=== PATIENT | male | born 1975 | race Caucasian/White ===

== ENCOUNTER 2018-09-30 10:05 | Outpatient (CLI) | payer BC ==
[2018-09-30 13:51] LABS: ALBUMIN 4.4 g/dL (3.2-5.5); ALBUMIN/GLOBULIN RATIO 1.6 (1.0-2.2); ALKALINE PHOSPHATASE 71 IU/L (42-121); ALT ALANINE AMINOTRANSFERASE 92 IU/L (10-60); AST ASPARTATE AMINOTRANSFERASE 43 IU/L (10-42); BILIRUBIN,TOTAL 0.8 mg/dL (0.2-1.0); BUN - BLOOD UREA NITROGEN 17 mg/dL (6-20); CALCIUM 9.4 mg/dL (8.5-10.3); CARBON DIOXIDE - CO2 29 mmol/L (21-32); CHLORIDE 101 mmol/L (101-111); CHOL/HDL RATIO 7.4 (<5.0); CHOLESTEROL 237 mg/dL; CREATININE 0.9 mg/dL (0.6-1.2); GFR - MDRD 93 (>89); GLUCOSE 120 mg/dL (70-100); HDL CHOLESTEROL 32 mg/dL; SODIUM 138 mmol/L (135-145); TOTAL PROTEIN 7.1 g/dL (6.7-8.2)
[2018-09-30 13:58] LABS: HB2 TOTAL 15.8 g/dL; HEMOGLOBIN A1C 0.71 g/dL; HEMOGLOBIN A1C % 6.3 % (4.6-6.2)
[2018-09-30 14:10] LABS: LDL CHOLESTEROL,DIRECT 124 mg/dL; LDLD/HDL RATIO 3.9 (<3.6)
== END 2018-09-30 10:06 | disposition home or self-care (01) ==
LOC: LAB.N 10:05
PROVIDERS: ATTEND Nurse Practitioner
DX: E11.9 Type 2 diabetes mellitus without complications (principal)
CPT/HCPCS: 36415; 80053; 80061; 82043; 83036; 83721; 84443

== ENCOUNTER 2018-12-30 08:00 | Outpatient (CLI) | payer BC ==
[2018-12-30 12:55] LABS: ALBUMIN 4.4 g/dL (3.2-5.5); ALBUMIN/GLOBULIN RATIO 1.5 (1.0-2.2); BILIRUBIN,TOTAL 0.8 mg/dL (0.2-1.0); CALCIUM 9.7 mg/dL (8.5-10.3); CREATININE 0.9 mg/dL (0.6-1.2); TOTAL PROTEIN 7.3 g/dL (6.7-8.2)
== END 2018-12-30 08:01 | disposition home or self-care (01) ==
LOC: LAB.N 08:00
PROVIDERS: ATTEND Physician Assistant Medical
DX: R10.84 Generalized abdominal pain (principal)
CPT/HCPCS: 36415; 80053; 82150; 83690

== ENCOUNTER 2019-01-06 08:00 | Outpatient (CLI) | payer BC ==
[2019-01-06 19:38] LABS: HB2 TOTAL 16.2 g/dL; HEMOGLOBIN A1C 0.77 g/dL; HEMOGLOBIN A1C % 6.5 % (4.6-6.2)
== END 2019-01-06 23:59 | disposition home or self-care (01) ==
LOC: LAB.N 08:00
PROVIDERS: ATTEND Physician Assistant Medical
DX: E11.9 Type 2 diabetes mellitus without complications (principal)
CPT/HCPCS: 36415; 83036

== ENCOUNTER 2020-12-02 07:13 | Outpatient (CLI) | payer BC ==
--- NOTE | 2020-12-02 10:10 | XRAY Report ---
PROCEDURE: Cervical Spine 2 View INDICATIONS: PAIN IN THORACIC SPINE, CERVICALGIA TECHNIQUE: 4 view(s) of the cervical spine were acquired. COMPARISON: None. FINDINGS: Bones: Normal cervical spine vertebral body height and alignment. No significant disc height loss or other degenerative changes. No suspicious lytic or blastic osseous lesion. Soft tissues: No prevertebral soft tissue swelling. IMPRESSION: Unremarkable exam. No significant degenerative changes identified. MRI may be helpful fo r more sensitive evaluation. Reviewed by: Paulino Ocampo MD on 12/02/2020 10:09 AM [facility] Approved by: Paulino Ocampo MD on 12/02/2020 10:09 AM [facility] Station ID: [id number]
--- NOTE | 2020-12-02 10:11 | XRAY Report ---
PROCEDURE: Thoracic Spine 2 View INDICATIONS: PAIN IN THORACIC SPINE, CERVICALGIA TECHNIQUE: 3 views of the thoracic spine were acquired. COMPARISON: None. FINDINGS: Bones: Fracture or dislocation. Normal thoracic spine vertebral body height and alignment. No signifi cant degenerative changes. Soft tissues: No paravertebral stripe thickening. IMPRESSION: Normal thoracic spine radiographs. Reviewed by: Paulino Ocampo MD on 12/02/2020 10:09 AM [facility] Approved by: Paulino Ocampo MD on 12/02/2020 10:09 AM [facility] Station ID: [id number]
== END 2020-12-02 07:14 | disposition home or self-care (01) ==
LOC: DI.N 07:13
PROVIDERS: ATTEND Physician Assistant
DX: M54.6 Pain in thoracic spine (principal); M54.2 Cervicalgia; M99.01 Segmental and somatic dysfunction of cervical region

== ENCOUNTER 2023-08-02 09:55 | Outpatient (CLI) | payer OTHER ==
--- NOTE | 2023-08-02 12:09 | XRAY Report ---
PROCEDURE: Sternum INDICATIONS: XIPHOIDALGIA TECHNIQUE: 2 views of the sternum acquired. COMPARISON: None FINDINGS: Bones: No fractures or dislocations. No suspicious bony lesions. Soft tissues: Retrosternal soft tissues appear normal. IMPRESSION: No acute bony abnormality. Comment: If continue to suspect sternal fracture, consider noncontrast chest CT. Reviewed by: Cem Aceves MD on 08/02/2023 12:08 PM PDT Approved by: Cem Aceves MD on 08/02/2023 12:08 PM PDT Station ID: [id number]
== END 2023-08-02 09:56 | disposition home or self-care (01) ==
LOC: DI 09:55
PROVIDERS: ATTEND Family Medicine
DX: M94.9 Disorder of cartilage, unspecified (principal)